=== PATIENT | female | born 1970 | race Caucasian/White ===

== ENCOUNTER 2022-06-10 16:54 | Outpatient (CLI) | payer OTHER, SELFPAY ==
--- NOTE | 2022-06-10 17:15 | CRLHL7_ITS ---
For Patients: As a result of the Cures Act, medical imaging exams and procedure reports are released immediately into your electronic medical record. You may view this report before your referring provider. If you have questions, please contact your health care provider. BILATERAL SCREENING MAMMOGRAM WITH COMPUTER-AIDED DETECTION AND TOMOSYNTHESIS TECHNIQUE: CC and MLO views were obtained. These mammographic images have been obtained using full-field digital technique. These mammographic images were interpreted with the benefit of computer-aided detection. Breast Tomosynthesis was used in this interpretation. COMPARISON FILM: 02/26/21, 11/22/19, 11/05/18 FINDINGS: There are scattered areas of fibroglandular density IMPRESSION: There is no radiographic evidence for malignancy. ASSESSMENT: BI-RADS Category 1: Negative RECOMMENDATION: Routine screening mammogram in 1 year. A lay language report of this examination will be provided to the patient. Ki Jose M.D. Diagnostic Radiologist [email or web address] [email or web address]/[email or web address] / be/Dictated by: Ki Jose MD @ 06/11/2022 12:13:00 PM (Electronically Signed)
== END 2022-06-10 16:55 | disposition home or self-care (01) ==
LOC: MAMMO 16:55
PROVIDERS: Visit Provider Obstetrics & Gynecology
DX: Z12.31 Encounter for screening mammogram for malignant neoplasm of breast (principal)
CPT/HCPCS: 77063; 77067

== ENCOUNTER 2022-08-21 10:23 | Outpatient (CLI) | payer OTHER, SELFPAY ==
[2022-08-21 22:10] LABS: Albumin* 4.6 g/dL (3.3-5.0); Chloride* 104 mmol/L (96-114); Potassium* 4.3 mmol/L (3.6-5.1); Sodium* 140 mmol/L (135-149)
[2022-08-21 22:12] LABS: Carbon Dioxide* 27 mmol/L (20-32); Cholesterol* 190 mg/dL (90-199); Creatinine* 0.6 mg/dL (0.5-1.5); Estimated Glomerular Filt Rate 109 ml/min
[2022-08-21 22:13] LABS: Alanine Aminotransferase* 28 U/L (4-35); Alkaline Phosphatase* 96 U/L (40-150); Aspartate Amino Transferase* 24 U/L (12-35); Bilirubin Total* 0.7 mg/dL (0.1-1.5); Blood Urea Nitrogen* 16 mg/dL (7-30); Calcium* 9.6 mg/dL (8.4-10.6); Glucose* 92 mg/dL (60-115); HDL Cholesterol* 47 mg/dL (>=50); LDL Cholesterol Calculated 115 mg/dL (<100); Total Protein* 7.5 g/dL (6.0-8.3); Triglycerides* 140 mg/dL (40-149)
== END 2022-08-21 10:24 | disposition home or self-care (01) ==
PROVIDERS: PCP Physician Assistant Medical; Visit Provider Physician Assistant Medical
DX: Z01.419 Encounter for gynecological examination (general) (routine) without abnormal findings (principal); E78.2 Mixed hyperlipidemia; I49.3 Ventricular premature depolarization; E66.01 Morbid (severe) obesity due to excess calories; D50.9 Iron deficiency anemia, unspecified
CPT/HCPCS: 80053; 80061; 84443

== ENCOUNTER 2023-03-10 07:14 | Outpatient (CLI) | payer OTHER, SELFPAY | END 2023-03-10 07:15 | disposition home or self-care (01) | LOC: NFLDREF 03-11 09:23 | PROVIDERS: PCP Physician Assistant Medical; Referring Provider Physician Assistant Medical; Visit Provider Family Medicine | DX: R39.89 Other symptoms and signs involving the genitourinary system (principal); N39.0 Urinary tract infection, site not specified | CPT/HCPCS: 87086 ==

== ENCOUNTER 2023-06-11 11:08 | Outpatient (CLI) | payer OTHER, SELFPAY ==
--- NOTE | 2023-06-11 11:30 | CRLHL7_ITS ---
For Patients: As a result of the Century Cures Act, medical imaging exams and procedure reports are released immediately into your electronic medical record. You may view this report before your referring provider. If you have questions, please contact your health care provider. BILATERAL DIGITAL SCREENING MAMMOGRAM WITH TOMOSYNTHESIS AND COMPUTER-AIDED DETECTION, 06/11/2023 CLINICAL HISTORY: Routine screening exam. COMPARISON: 06/10/2022, 02/26/2021, 11/22/2019, 11/05/2018. TECHNIQUE: Digital mammogram in CC and MLO projections including computer-aided detection (CAD). Tomosynthesis utilized. BREAST COMPOSITION: There are areas of scattered fibroglandular density. FINDINGS: RIGHT Breast: Focal asymmetric density within the lateral tissue 9 cm from the nipple. LEFT Breast: No suspicious findings. IMPRESSION: RIGHT breast asymmetry/mass. RECOMMENDATIONS: Additional mammographic views of the RIGHT breast including 3D spot compression CC/MLO. RIGHT breast ultrasound may also be required. BI-RADS Category 0: Incomplete: Need Additional Imaging Evaluation and/or Prior Mammograms for Comparison [facility] will contact the patient for follow-up. A lay language report of this examination will be provided to the patient. Dictated by Ki Jose MD @ 06/11/2023 1:12:09 PM [email or web address]/Dictated by: Ki Jose MD @ 06/11/2023 1:12:00 PM (Electronically Signed)
== END 2023-06-11 11:09 | disposition home or self-care (01) ==
LOC: MAMMO 11:09
PROVIDERS: PCP Physician Assistant Medical; Visit Provider Physician Assistant Medical
DX: Z12.31 Encounter for screening mammogram for malignant neoplasm of breast (principal); N63.10 Unspecified lump in the right breast, unspecified quadrant
CPT/HCPCS: 77063; 77067

== ENCOUNTER 2023-06-17 10:22 | Outpatient (CLI) | payer OTHER, SELFPAY ==
--- NOTE | 2023-06-17 10:45 | CRLHL7_ITS ---
For Patients: As a result of the Cures Act, medical imaging exams and procedure reports are released immediately into your electronic medical record. You may view this report before your referring provider. If you have questions, please contact your health care provider. DIGITAL DIAGNOSTIC RIGHT MAMMOGRAM USING TOMOSYNTHESIS AND COMPUTER-AIDED DETECTION RIGHT BREAST ULTRASOUND CLINICAL HISTORY: RIGHT breast mass/asymmetry. COMPARISON: 06/11/2023, 06/10/2022, 02/26/2021, 11/22/2019. TECHNIQUE: Digital RIGHT mammogram in two projections. Tomosynthesis and CAD utilized. Real-time ultrasound imaging of RIGHT breast with imaging documentation. Scanning was performed by both the technologist and the radiologist. BREAST COMPOSITION: There are areas of scattered fibroglandular density. FINDINGS: 3D spot compression CC/MLO RIGHT breast mammogram images submitted. Decreased conspicuity of previously noted asymmetric density. No architectural distortion. Targeted RIGHT breast ultrasound performed laterally. At 9 o`clock 9 cm from the nipple RIGHT breast there is normal fibroglandular tissue without fibrocystic change or suspicious mass. IMPRESSION: Normal fibroglandular tissue. No evidence of malignancy. RECOMMENDATIONS: Annual BILATERAL screening mammography. Results and recommendations discussed with the patient. BI-RADS Category 2: Benign A lay language report of this examination will be provided to the patient. Dictated by Ki Jose MD @ 06/17/2023 11:20:21 AM /Dictated by: Ki Jose MD @ 06/17/2023 11:20:00 AM (Electronically Signed)
--- NOTE | 2023-06-17 11:15 | CRLHL7_ITS ---
For Patients: As a result of the Cures Act, medical imaging exams and procedure reports are released immediately into your electronic medical record. You may view this report before your referring provider. If you have questions, please contact your health care provider. PLEASE SEE DIGITAL DIAGNOSTIC RIGHT MAMMOGRAM PERFORMED SAME DAY CRL:yi [email or web address]/Dictated by: Ki Jose MD @ 06/17/2023 11:48:00 AM (Electronically Signed)
== END 2023-06-17 10:23 | disposition home or self-care (01) ==
LOC: MAMMO 10:22
PROVIDERS: PCP Physician Assistant Medical; Visit Provider Physician Assistant Medical
DX: N63.10 Unspecified lump in the right breast, unspecified quadrant (principal); R92.8 Other abnormal and inconclusive findings on diagnostic imaging of breast
CPT/HCPCS: 76642; 77065; G0279

== ENCOUNTER 2023-09-24 10:26 | Outpatient (CLI) | payer OTHER, SELFPAY | END 2023-09-24 10:27 | disposition home or self-care (01) | LOC: NFLDREF 10-01 09:51 | PROVIDERS: PCP Physician Assistant Medical; Referring Provider Physician Assistant Medical; Visit Provider Physician Assistant Medical | DX: Z00.00 Encounter for general adult medical examination without abnormal findings (principal); E78.2 Mixed hyperlipidemia; I49.3 Ventricular premature depolarization; E66.01 Morbid (severe) obesity due to excess calories; Z68.41 Body mass index [BMI] 40.0-44.9, adult | CPT/HCPCS: 80053; 80061; 84443 ==

== ENCOUNTER 2025-01-09 07:34 | Outpatient (CLI) | payer OTHER, SELFPAY | END 2025-01-09 07:35 | disposition home or self-care (01) | LOC: NFLDREF 01-10 21:53 | PROVIDERS: PCP Physician Assistant Medical; Referring Provider Physician Assistant Medical; Visit Provider Physician Assistant Medical | DX: E78.2 Mixed hyperlipidemia (principal); I49.3 Ventricular premature depolarization; E66.01 Morbid (severe) obesity due to excess calories | CPT/HCPCS: 80053; 80061; 84443 ==

== ENCOUNTER 2025-04-26 13:20 | Outpatient (CLI) | payer OTHER, SELFPAY ==
--- NOTE | 2025-04-26 13:40 | CRLHL7_ITS ---
For Patients: As a result of the Century Cures Act, medical imaging exams and procedure reports are released immediately into your electronic medical record. You may view this report before your referring provider. If you have questions, please contact your health care provider. INDICATION: BILATERAL SCREENING MAMMOGRAM, ASYMPTOMATIC 54 Y/O FEMALE COMPARISON: 06/17/2023, 06/11/2023, 06/10/2022 TECHNIQUE: Digital mammogram in CC and MLO projections including computer-aided detection (CAD) and tomosynthesis. BREAST COMPOSITION: There are scattered areas of fibroglandular density. FINDINGS: No suspicious findings. ASSESSMENT: BI-RADS 2 Benign RECOMMENDATION: Annual screening mammogram. A lay language report of this examination will be provided to the patient. Dictated by: Ki Jose MD @ 04/27/2025 08:18:15 (Electronically Signed)
== END 2025-04-26 13:21 | disposition home or self-care (01) ==
LOC: MAMMO 13:21
PROVIDERS: PCP Physician Assistant Medical; Visit Provider Physician Assistant Medical
DX: Z12.31 Encounter for screening mammogram for malignant neoplasm of breast (principal)
CPT/HCPCS: 77063; 77067